=== PATIENT | female | born 1980 | race Caucasian/White ===

== ENCOUNTER 2017-02-21 13:30 | Emergency (ER) | payer BC ==
--- NOTE | 2017-02-21 14:58 | UC ---
Respiratory Complaint HPI - HPI Summary HPI Summary: 36 year old female presents with complains of cough. On a side note the patient has been treated with antibiotics, steroids, cough syrup and an inhaler by her PCP. - History of Current Complaint Chief Complaint: UCGeneralIllness Stated Complaint: COUGH Time Seen by Provider: 02/21/17 14:58 Hx Obtained From: Patient Hx Last Menstrual Period: 02/06/17 Onset/Duration: Sudden Onset Severity Initially: Moderate Severity Currently: Moderate Pain Scale Used: 0-10 Numeric - 0 Character: Cough: Nonproductive Alleviating Factors: Bronchodilator Associated Signs And Symptoms: Positive: Wheezing - Allergies/Home Medications Allergies/Adverse Reactions: Allergies Allergy/AdvReac Type Severity Reaction Status Date / Time environmental Allergy Hives Uncoded 02/21/17 14:58 Home Medications: Home Medications Cyclobenzaprine HCl [Flexeril 5 mg (NF)] 02/21/17 [History] PMH/Surg Hx/FS Hx/Imm Hx Previously Healthy: Yes - Surgical History Surgical History: Yes Surgery Procedure, Year, and Place: Right shoulder bicep tendon, rotator cuff - Family History Known Family History: Positive: Respiratory Disease - father with pulmonary fibrosis Negative: Cardiac Disease, Hypertension, Diabetes - Social History Alcohol Use: Weekly Alcohol Amount: 3 wine Substance Use Type: None Smoking Status (MU): Former Smoker - Immunization History Most Recent Influenza Vaccination: not current Review of Systems Constitutional: Negative Skin: Negative Eyes: Negative ENT: Nasal Discharge, Sinus Congestion, Sinus Pain/Tenderness Respiratory: Cough Cardiovascular: Negative Gastrointestinal: Negative Genitourinary: Negative Motor: Negative Neurovascular: Negative Musculoskeletal: Negative Neurological: Negative Psychological: Negative All Other Systems Reviewed And Are Negative: Yes Physical Exam Triage Information Reviewed: Yes Vital Signs: Initial Vital Signs Temp 36.6 C 02/21/17 14:53 Pulse 98 02/21/17 14:53 Resp 18 02/21/17 14:53 BP 123/75 02/21/17 14:53 Pulse Ox 100 02/21/17 14:53 Vital Signs Reviewed: Yes Eye Exam: Normal ENT: Positive: Nasal congestion, Nasal drainage Dental Exam: Normal Neck exam: Normal Neck: Positive: 1 Respiratory Exam: Normal Cardiovascular Exam: Normal Abdominal Exam: Normal Musculoskeletal Exam: Normal Neurological Exam: Normal Psychological Exam: Normal Skin Exam: Normal UC Diagnostic Evaluation - Laboratory O2 Sat by Pulse Oximetry: 100 Respiratory Course/Dx - Differential Dx/Diagnosis Provider Diagnoses: ALLERGIC RHINITIS. COUGH Discharge - Discharge Plan Condition: Stable Disposition: HOME Prescriptions: Albuterol HFA INHALER* [Ventolin HFA Inhaler*] 1 puff INH Q6H PRN #1 mdi PRN Reason: Wheezing Azithromyxin KATJA (NF) [Z-Katja (Zithromax) 250 mg tabs #6] 2 tab PO .TODAY, THEN 1 DAILY #6 tab Benzonatate CAP* [Tessalon 100 MG CAP*] 100 mg PO TID PRN #30 cap PRN Reason: Cough Guaifenesin-Codeine [Cheratussin AC] 1 teasp PO Q8H PRN #120 ml MDD 15 ml PRN Reason: Cough LoraTADine TAB(NF) [Claritin 10 MG TAB(NF)] 10 mg PO DAILY #30 tab Patient Education Materials: Allergic Rhinitis (ED) Referrals: Yancy Bergeron NP [Primary Care Provider] -
[2017-02-21 14:59] VITALS: BP 123/75
--- NOTE | 2017-02-21 15:31 | RAD ---
HISTORY: Cough COMPARISONS: None VIEWS: 4: Frontal dual-energy and lateral views of the chest. FINDINGS: CARDIOMEDIASTINAL SILHOUETTE: The cardiomediastinal silhouette is normal. TAMARA: The tamara are normal. PLEURA: The costophrenic angles are sharp. No pleural abnormalities are noted. LUNG PARENCHYMA: The lungs are clear. ABDOMEN: The upper abdomen is clear. There is no subphrenic gas. BONES AND SOFT TISSUES: No bone or soft tissue abnormalities are noted. OTHER: None. IMPRESSION: NO ACTIVE CARDIOPULMONARY DISEASE.
[2017-02-21] MEDS ORDERED: Benzonatate CAP* 100 MG PO ONE (15:45)
[2017-02-21] MEDS ORDERED: LoraTADine TAB(NF) 10 MG TAB (AUTOSUB to CETIRIZINE) PO ONE (15:45)
== END 2017-02-21 15:50 | disposition home or self-care (01) ==
LOC: UCCORT 13:30
DX: J30.9 Allergic rhinitis, unspecified (principal); R05 Cough; Z87.891 Personal history of nicotine dependence
CPT/HCPCS: 71046; 99212; A9270-GY; G0463

== ENCOUNTER 2017-12-27 10:27 | Inpatient (IN) | payer BC ==
[2017-12-27] MEDS ORDERED: ceFOXitin 2 GM IVPREMIX* 2 GM/50 ML BAG IVPB ONE (10:45)
[2017-12-27] MEDS ORDERED: Sodium Citrate/Citric Acid* 15 ML UDC PO ONE (10:45)
--- NOTE | 2017-12-27 10:53 | HP ---
General Information - Reason for Visit 38 weeks, severe symphysis dysfunction, in labor, desires Section due to severe pain from pubic bone. - General Information Maternal Age: 37 Grav: 1 Para: 0 SAB: 0 IEA: 0 Estimated Due Date: 01/07/18 Determined By: LMP Maternal Blood Type and Rh: O Negative - Results this Serology/RPR Result: Non-Reactive Rubella Result: Immune HBsAg Result: Negative HIV Result: Negative GBS Culture Result: Negative Past Medical History Delivery History: See Records Pertinent Past Medical History: See Records Past Medical History Comment: Depression Anxiety Fibromyalgia Renal stones Migraine headaches Idiopathic urticaria Seasonal allergies Pertinent Past Surgical History: See Records Past Surgical History Comment: Shoulder Arthroscopy Pertinent Family History: See Records Review of Systems Constitutional: Uncomfortable - Severe apin pubic bone with contractions CV Complaint: No Respiratory: Shortness of Breath: No Gastrointestinal: No Nausea/Vomiting, Normal Bowel Movement Genitourinary: No Dysuria, No Bleeding, No Leaking Fluid Musculoskeletal: No Complaint, No Epigastric Pain Neurological: No Headache, No Visual Changes Movement: Normal Exam Allergies/Adverse Reactions: Allergies environmental Allergy (Uncoded 02/21/17 14:58) Hives Temp98.3 BP 115/52 P 78 RR 18 - Measurements Height: 5 ft 6 in Pre- Weight: 208 lb - Exam Breast: Breast Exam Deferred CVA: No CVA Tenderness Extremities: No Edema Heart: Normal Rhythm/Heart Sounds HEENT: No Significant Findings Lungs: Clear Bilaterally Rectal: Rectal Exam Deferred Reflexes: DTR 2+ Targeted Exam Findings See L&D Outpatient Visit Provider Note for Findings: N/A Cervical Exam: 5cm Effacement: 90% Station: +1 Presenting Part: Vertex Membrane Status: Intact EFM Findings - External Monitor Findings Baseline Heart Rate: 130 External Monitor Findings: Accelerations Present, No Pattern of Variable or Late Decelerations Contractions: Regular, Strong Assessment/Plan - Assessment at 38 weeks in labor with obstetrical damage to symphisis pubis severe pain, . - Obstetrical Risk Factors Obstetrical Risk Factors: Obesity - Plan Plan: IV Hydration, Expedite C/S Delivery, Antibiotic Prophylaxis - Date/Time of Admission Date of Admission: 12/27/17 Time of Admission: 11:00
[2017-12-27] MEDS ORDERED: Morphine PF AMP (0.5MG/ML)* 5 MG/10 ML AMP ONE (11:21)
[2017-12-27] MEDS ORDERED: fentaNYL* 50 MCG/ML 2 ML VIAL (100 MCG VIAL) ONE (11:21)
[2017-12-27 11:28] LABS: ABS Basophils 0 10^3/ul (0-0.2); ABS Eosinophils 0 10^3/ul (0-0.6); ABS Lymphocytes 1.7 10^3/ul (1.0-4.8); ABS Monocytes 0.4 10^3/ul (0-0.8); ABS Neutrophils 8.4 10^3/ul (1.5-7.7); ABS Nucleated RBC 0 10^3/ul; Eosinophil % 0.1 % (0-6); Hematocrit 41 % (35-47); Hemoglobin 14.2 g/dl (12.0-16.0); Mean Corpuscular HGB Conc 35 g/dl (31-36); Mean Corpuscular Hemoglobin 32 pg (27-31); Mean Corpuscular Volume 94 fL (80-97); Mean Platelet Volume 8.2 fL (7.4-10.4); Nucleated Red Blood Cells % 0.1; Platelet Count 210 10^3/ul (150-450); Red Cell Distribution Width 14 % (10.5-15); White Blood Count 10.5 10^3/ul (3.5-10.8)
[2017-12-27] MEDS ORDERED: Lidocaine 2% PF * 5 ML VIAL ONE (11:59)
[2017-12-27] MEDS ORDERED: OXYTOCIN* 10 UNITS/ML 1 ML VIAL ONE (11:59)
[2017-12-27] MEDS ORDERED: Phenylephrine IV* 40 MCG/ML 10 ML SYRINGE ONE (12:29)
[2017-12-27] MEDS ORDERED: Zolpidem TAB* 5 MG PO PRN (12:40)
[2017-12-27] MEDS ORDERED: Witch Hazel PAD* JAR TOPICAL PRN (12:40)
[2017-12-27] MEDS ORDERED: Glycerin ADULT SUPP PR PRN (12:40)
[2017-12-27] MEDS ORDERED: Ibuprofen TAB* 600 MG PO PRN (12:40)
[2017-12-27] MEDS ORDERED: Dibucaine 1% 28.35 GM TUBE PR PRN (12:40)
[2017-12-27] MEDS ORDERED: Acetaminophen TAB* 325 MG PO PRN ×2 (12:40→12:44)
[2017-12-27] MEDS ORDERED: oxyCODONE/Acetamin 5/325 MG* TAB PO PRN ×3 (12:40→12:44)
[2017-12-27] MEDS ORDERED: Ondansetron INJ* 2 MG/ML VIAL IV PRN (12:44)
[2017-12-27] MEDS ORDERED: Naloxone* 0.4 MG/ML 1 ML VIAL IV PRN (12:44)
[2017-12-27] MEDS ORDERED: diPHENhydraMINE IV* 50 MG/ML 1 ml VIAL (BENADRYL) IV PRN (12:44)
[2017-12-27] MEDS ORDERED: oxyCODONE TAB* 5 MG TAB PO PRN (12:44)
[2017-12-27] MEDS ORDERED: Metoclopramide IV* 5 MG/ML 2 ML VIAL IV PRN (12:44)
[2017-12-27] MEDS ORDERED: Oxytocin in LR* 20 UNITS/1,000 ML BAG IVPB ONE (12:54)
[2017-12-27] MEDS ORDERED: Lidocaine 1%* 5 ML VIAL ONE (15:32)
[2017-12-27] MEDS: Ketorolac INJ* 30 MG/ML 1 ML VIAL IV PRN ×2 (15:56→22:15)
[2017-12-27] MEDS: Simethicone TAB* 80 MG TAB.CHEW PO SCH ×3 (17:44→22:16)
[2017-12-27] MEDS: Docusate CAP* 100 MG PO SCH ×2 (22:16→22:17)
[2017-12-28] MEDS ORDERED: Acetaminophen TAB* 325 MG PO PRN (00:12)
[2017-12-28] MEDS: Ketorolac INJ* 30 MG/ML 1 ML VIAL IV PRN ×2 (04:33→10:30)
[2017-12-28 06:47] LABS: ABS Basophils 0 10^3/ul (0-0.2); ABS Eosinophils 0 10^3/ul (0-0.6); ABS Lymphocytes 2.1 10^3/ul (1.0-4.8); ABS Monocytes 0.6 10^3/ul (0-0.8); ABS Neutrophils 7.9 10^3/ul (1.5-7.7); ABS Nucleated RBC 0 10^3/ul; Eosinophil % 0.4 % (0-6); Hematocrit 34 % (35-47); Hemoglobin 11.7 g/dl (12.0-16.0); Lymphocyte % 19.5 % (25-47); Mean Corpuscular HGB Conc 35 g/dl (31-36); Mean Corpuscular Hemoglobin 33 pg (27-31); Mean Corpuscular Volume 95 fL (80-97); Mean Platelet Volume 7.7 fL (7.4-10.4); Nucleated Red Blood Cells % 0; Platelet Count 163 10^3/ul (150-450); Red Blood Count 3.56 10^6/ul (4.00-5.40); Red Cell Distribution Width 14 % (10.5-15); White Blood Count 10.6 10^3/ul (3.5-10.8)
[2017-12-28] MEDS: oxyCODONE/Acetamin 5/325 MG* TAB PO PRN ×4 (08:26→21:36)
[2017-12-28] MEDS: Simethicone TAB* 80 MG TAB.CHEW PO SCH ×4 (08:26→21:36)
[2017-12-28] MEDS ORDERED: Ferrous Gluconate TAB* 324 MG TAB PO SCH (09:00)
[2017-12-28] MEDS: Docusate CAP* 100 MG PO SCH ×3 (09:03→21:36)
--- NOTE | 2017-12-28 14:56 | PTEDU ---
Patient Name: LOTTIE GUERRA LOTTIE GUERRA selected video: Follow Me Mum: [facility] Successful to view on 12/29/19 18 at 2:55:43 PM from [facility] [email or web address]
[2017-12-28] MEDS ORDERED: diPHENhydraMINE PO* 25 MG PO PRN (16:56)
[2017-12-28] MEDS ORDERED: Measles, Mumps,Rubella VACC* 0.5 ML/VIAL SUBCUT ONE (16:57)
[2017-12-28] MEDS: Ibuprofen TAB* 600 MG PO PRN (17:24)
[2017-12-29] MEDS: Ibuprofen TAB* 600 MG PO PRN ×4 (01:09→20:48)
[2017-12-29] MEDS: oxyCODONE/Acetamin 5/325 MG* TAB PO PRN ×4 (01:09→20:48)
--- NOTE | 2017-12-29 03:22 | OP ---
DATE OF OPERATION: 12/27/17 - ROOM #102 DATE OF : 76 SURGEON: Luis Bhardwaj MD SUGAR CONTROLLER: Dr. Simon. ANESTHESIA: Spinal. PRE-OP DIAGNOSES: at 38 weeks, in labor, with obstetrical damage to the pubic bone and severe pubic bone pain. POST-OP DIAGNOSES: at 38 weeks, in labor, with obstetrical damage to the pubic bone and severe pubic bone pain. OPERATIVE PROCEDURE: Primary low transverse section. ESTIMATED BLOOD LOSS: 600 cc. SPECIMENS SENT TO PATHOLOGY: Cord blood. FLUIDS: She received 1500 cc of IV crystalloid fluid. URINE OUTPUT: Blood tinged. FINDINGS: Delivery of a viable female over meconium stained fluid with Apgars of 9 and 9 weighing 7 pounds 6 ounces. The placenta was grossly intact with the 3-vessel cord noted. The uterus, adnexa, bowel, and bladder were all within normal limits. There were no complications. DESCRIPTION OF PROCEDURE: The patient was taken to the operating room where she was identified. She was placed on the operating room table where a spinal anesthetic was obtained without difficulty. She was then placed in the supine position with a leftward tilt, prepped and draped in a normal sterile fashion. A Pfannenstiel skin incision was made with a knife and carried through to the underlying layer of fascia. The fascia was nicked in the midline and extended laterally with curved Kitchen scissors. The fascia was grasped superiorly and inferiorly with Tatiana clamps and dissected off sharply from the rectus muscle. The rectus muscles were in the midline bluntly. The peritoneum was identified, grasped with pickups, and entered sharply with Metzenbaum scissors. The peritoneum was then extended superiorly and inferiorly sharply. A bladder blade was inserted into the patient's abdomen and bladder flap was created using Metzenbaum scissors over which the bladder blade was reinserted. A low transverse uterine incision was made with a knife, extended laterally with bandage scissors. The amniotic sac was ruptured. Fluid was noted to be meconium stained. The 's head was then grasped and delivered atraumatically. The nose and mouth were suctioned. The rest of the infant's body was then delivered. The cord was clamped and cut and the infant was handed off to the awaiting a p manager. Cord bloods were obtained. The placenta was removed manually. The uterus was then exteriorized, cleared off all clot and debris using moist laparotomy sponges. The uterine incision was then closed using 0 Polysorb suture in a running locked fashion with the second imbricating layer of 0 Polysorb suture with good hemostasis noted. The uterus was returned to the patient's abdomen. The gutters were then cleared of all clot and debris using moist laparotomy sponges. All sponges and instruments were then removed from the patient's abdomen. The peritoneum was then closed using 3-0 Polysorb suture in a running fashion. The fascia was closed using 0 Polysorb suture in a running fashion and the skin was closed with subcuticular 4 - 0 Monocryl stitch. The patient tolerated the procedure well. Sponge, lap, and needle counts were correct x2. She was then transferred to the recovery room area in stable condition. [id number]/CPS #: [id number] MTDD
[2017-12-29] MEDS: Simethicone TAB* 80 MG TAB.CHEW PO SCH ×4 (07:47→20:48)
[2017-12-29] MEDS: Docusate CAP* 100 MG PO SCH ×3 (07:47→20:48)
[2017-12-30] MEDS: oxyCODONE/Acetamin 5/325 MG* TAB PO PRN ×3 (02:08→11:59)
[2017-12-30] MEDS: Ibuprofen TAB* 600 MG PO PRN ×2 (03:14→09:18)
[2017-12-30 08:00] VITALS: BP 103/56
[2017-12-30] MEDS: Docusate CAP* 100 MG PO SCH (09:18)
[2017-12-30] MEDS: Simethicone TAB* 80 MG TAB.CHEW PO SCH ×2 (09:18→12:42)
== END 2017-12-30 12:45 | disposition home or self-care (01) | DRG 540 ==
LOC: MCHOBOUT 10:27 → MCHOB 10:44
PROVIDERS: ADMIT Obstetrics & Gynecology; ATTEND Obstetrics & Gynecology
PROC: 4A1HX4Z Monitoring of Products of Conception, Cardiac Electrical Activity, External Approach (ICD-10-PCS; 2017-12-27)
PROC: 10D00Z1 Extraction of Products of Conception, Low, Open Approach (ICD-10-PCS; principal; 2017-12-27 11:24)
DX: O71.6 Obstetric damage to pelvic joints and ligaments (principal); E66.9 Obesity, unspecified; O69.81X0 Labor and delivery complicated by cord around neck, without compression, not applicable or unspecified; Z3A.38 38 weeks gestation of pregnancy; Z37.0 Single live birth; Z68.33 Body mass index [BMI] 33.0-33.9, adult; Z87.442 Personal history of urinary calculi; O77.0 Labor and delivery complicated by meconium in amniotic fluid
CPT/HCPCS: 36415; 85025; 86850; 86870; 86880; 86900; 86901; 90707; A9270-GY; J0694; J1200; J1885; J2590; J3010